=== PATIENT | male | born 1960 | race Caucasian/White ===

== ENCOUNTER 2019-08-28 14:25 | Inpatient (IN) | payer OTHER ==
[~2019-08-28] VITALS: Ht 182.9 cm; Wt 111.6 kg
[~2019-08-28 14:25] MED LIST: DOXYCYCLINE 10100 MG PO
[2019-08-28 14:26] VITALS: BP 148/89
[2019-08-28] MEDS ORDERED: OMEPRAZOLE 20 M20 M1 PO (14:43)
[2019-08-28] MEDS ORDERED: COZAAR 25 MG TA25 M1 PO (14:43)
[2019-08-28] MEDS ORDERED: AMBIEN5 MG PO (14:43)
[2019-08-28] MEDS ORDERED: XARELTO1 EACH PO (14:43)
[2019-08-28 15:09] LABS: URINE BILIRUBIN NEGATIVE (Negative); URINE BLOOD NEGATIVE (Negative); URINE CLARITY CLEAR; URINE COLOR YELLOW; URINE GLUCOSE-RANDOM TRACE (Negative); URINE KETONES NEGATIVE (Negative); URINE LEUKOCYTES-REFLEX NEGATIVE (Negative); URINE NITRITE-REFLEX NEGATIVE (Negative); URINE PROTEIN 1+ (Negative); URINE SPECIFIC GRAVITY 1.015 (1.005-1.030); URINE UROBILINOGEN >= 8.0 E.U./dl (0.2-1.0)
[2019-08-28 15:10] LABS: HEMATOCRIT 48.6 % (42.0-52.0); HEMOGLOBIN 16.8 gm/dL (14.0-18.0); MCH 30.6 pg (26.0-34.0); MCHC 34.6 g/dL (28.0-37.0); MCV 88.5 fL (80.0-100.0); MPV 9.1 fl. (7.2-11.1); NUCLEATED RBCS 0 /100WBC; PLATELET COUNT* 205 thou/uL (150-400); RDW-CV 15.9 % (10.5-14.5); WBC 18.6 thou/uL (4.0-11.0)
[2019-08-28 15:14] LABS: CALCIUM 8.7 mg/dL (8.5-10.1); CREATININE 1.3 mg/dL (0.6-1.3); POTASSIUM 4.3 mmol/L (3.5-5.1)
[2019-08-28 15:15] LABS: APTT 33.1 Seconds (25.0-31.3); INR 1.1; PROTIME 11.2 Seconds (9.20-11.50)
[2019-08-28 15:19] LABS: ALBUMIN 3.5 g/dL (3.4-5.0); TOTAL BILIRUBIN 1.2 mg/dL (<0.1-1.0); TOTAL PROTEIN 7.8 g/dL (6.4-8.2)
[2019-08-28 15:49] LABS: ABSOLUTE EOSINOPHILS 0.2 thou/uL (0.0-0.7); ABSOLUTE LYMPHOCYTES 0.9 thou/uL (0.8-5.3); ABSOLUTE MONOCYTES 0.7 thou/uL (0.0-1.2); ABSOLUTE NEUTROPHILS 16.7 thou/uL (1.6-8.1)
[2019-08-28 15:50] LABS: ANISOCYTOSIS 1+; PLATELET ESTIMATE ADEQUATE
[2019-08-28 19:58] VITALS: BP 129/79
[2019-08-28 22:00] VITALS: BP 138/76
[2019-08-28] MEDS ORDERED: XANAX1 MG PO (22:00)
[2019-08-29 04:20] VITALS: BP 121/82
[2019-08-29 04:46] LABS: HEMATOCRIT 44.1 % (42.0-52.0); HEMOGLOBIN 15.3 gm/dL (14.0-18.0); MCH 30.7 pg (26.0-34.0); MCHC 34.6 g/dL (28.0-37.0); MCV 88.7 fL (80.0-100.0); MPV 8.8 fl. (7.2-11.1); RBC 4.97 mil/uL (4.50-6.00); WBC 13.6 thou/uL (4.0-11.0)
[2019-08-29 04:53] LABS: CALCIUM 8.6 mg/dL (8.5-10.1); CREATININE 1.2 mg/dL (0.6-1.3)
[2019-08-29 04:57] LABS: ALBUMIN 2.8 g/dL (3.4-5.0); MAGNESIUM 1.8 mg/dL (1.8-2.4); TOTAL BILIRUBIN 1.7 mg/dL (<0.1-1.0); TOTAL PROTEIN 6.8 g/dL (6.4-8.2)
--- NOTE | 2019-08-29 11:08 | EKG ---
[place] [address] ELECTROCARDIOGRAM REPORT Name: BRIANNA COX Room: [address] ADM IN [facility].#: [id number] Admission: 08/28/19 Attend Phys: Elizabeth montano Sa Discharge: Date of : 60 Date of Service: 08/28/19 1443 Report #: [id number] THIS REPORT FOR: //name// [facility] ED Test Date: 2019-08-28 Test Time: 14:43:21 Pat Name: BRIANNA COX Department: Room: [facility] Gender: M [employer]: : 1960 Requested By: Lisa Albarado Order Number: [id number] MD: Janes Meeks Measurements Intervals [place] Rate: 105 P: 64 [place]: 137 QRS: -54 QRSD: 147 T: 15 QT: 348 QTc: 461 Interpretive Statements Sinus tachycardia Probable left atrial enlargement RBBB and LAFB Baseline wander in lead(s) I,V1,V4 No previous ECG available for comparison Electronically Signed On 08-29-2019 11:07:40 MEDICAL OFFICE ADMINISTRATOR by Janes Meeks [email or web address] <ELECTRONICALLY SIGNED> By: Janes Meeks MD, [facility] 08/29/19 1107 1443 1443 Janes Meeks MD, [facility] /EPI
[2019-08-29 17:00] VITALS: BP 148/88
[2019-08-29 19:40] VITALS: BP 146/85
[2019-08-30 00:50] VITALS: BP 124/63
[2019-08-30 02:17] LABS: HEMOGLOBIN 14.5 gm/dL (14.0-18.0); MCH 30.7 pg (26.0-34.0); MCHC 34.6 g/dL (28.0-37.0); MCV 88.8 fL (80.0-100.0); MPV 8.8 fl. (7.2-11.1); RBC 4.73 mil/uL (4.50-6.00); RDW-CV 15.8 % (10.5-14.5); WBC 9.5 thou/uL (4.0-11.0)
[2019-08-30 02:20] LABS: CALCIUM 8.6 mg/dL (8.5-10.1); CREATININE 1.3 mg/dL (0.6-1.3); POTASSIUM 4.5 mmol/L (3.5-5.1)
[2019-08-30 08:00] VITALS: BP 141/92
[2019-08-30] MEDS ORDERED: AUGMENTIN 875-1 EACH PO (10:30)
[2019-08-30] MEDS ORDERED: CULTURELLE KID1 EAC1 PO (10:30)
[2019-08-30 10:42] VITALS: BP 141/92
[2019-08-30 11:55] VITALS: BP 130/77
--- NOTE | 2019-08-30 14:28 | NUR ---
cm completed initial assessment. pt is at bedside. pt stated he is d/c'g soon. pt denies any needs at this time. cm to remain avail.
--- NOTE | 2019-08-30 14:29 | NUR ---
PT IS A/OX4 SITTING UP IN CHAIR.VSS. AT BEDSIDE.PT PROGRESSING TOWARDS GOALS.NO C/O PAIN.IV HEPARIN INFUSING PER PROTOCOL.IV ANTIBIOTICS GIVEN.PT INFORMED OF PLAN OF CARE AND COMMUNICATES UNDERSTANDING.PT OK FOR DISCHARGE IF OK WITH SURGERY.SURGERY SAW PT AND OK FOR D/C.DISCHARGE PAPERWORK COMPLETED AND GIVEN TO PT.SCRIPTS CALLED INTO PHARMACY.IV REMOVED X2.ALL PERSONAL BELONGINGS PACKED AND TAKEN WITH PT.PT WALKED OUT TO PERSONAL VEHICLE.
== END 2019-08-30 14:30 | disposition home or self-care (01) | DRG 872 ==
LOC: M.ERS 14:25 → M.TBA-ER 16:34 → M.ERS 16:34 → M.TBA-ER 17:26 → M.2W 17:26
PROVIDERS: Nurse Practitioner Family; Surgery; ADMIT Family Medicine
DX: A41.9 Sepsis, unspecified organism (principal); K57.20 Diverticulitis of large intestine with perforation and abscess without bleeding; D68.59 Other primary thrombophilia; E66.9 Obesity, unspecified; D75.1 Secondary polycythemia; J42 Unspecified chronic bronchitis; F17.210 Nicotine dependence, cigarettes, uncomplicated; K21.9 Gastro-esophageal reflux disease without esophagitis; J32.9 Chronic sinusitis, unspecified; Z79.899 Other long term (current) drug therapy; Z88.1 Allergy status to other antibiotic agents; Z68.33 Body mass index [BMI] 33.0-33.9, adult; Z87.01 Personal history of pneumonia (recurrent); Z86.718 Personal history of other venous thrombosis and embolism; Z79.01 Long term (current) use of anticoagulants

== ENCOUNTER 2019-09-02 18:15 | Emergency (ER) | payer OTHER ==
[~2019-09-02] VITALS: Ht 182.9 cm; Wt 108.0 kg
[~2019-09-02 18:15] MED LIST changes: +AMBIEN5 MG PO; +AUGMENTIN 875-1 EACH PO; +COZAAR 25 MG TA25 M1 PO; +CULTURELLE KID1 EAC1 PO; +OMEPRAZOLE 20 M20 M1 PO; +XANAX1 MG PO; +XARELTO1 EACH PO
[2019-09-02 19:48] VITALS: BP 131/90
== END 2019-09-02 19:51 | disposition left against medical advice (07) ==
LOC: M.ERS 18:15
DX: Z53.21 Procedure and treatment not carried out due to patient leaving prior to being seen by health care provider (principal)